=== PATIENT | female | born 1995 | race Hispanic/Latino ===

== ENCOUNTER 2020-10-26 10:09 | Outpatient (CLI) | payer OTHER | END 2020-10-26 10:10 | disposition home or self-care (01) | LOC: BICULT 10:09 | PROVIDERS: ATTEND Nurse Practitioner | DX: Z34.82 Encounter for supervision of other normal pregnancy, second trimester (principal); Z3A.19 19 weeks gestation of pregnancy | CPT/HCPCS: 76805 ==

== ENCOUNTER 2021-03-20 21:12 | Emergency (ER) | payer OTHER ==
[2021-03-20] MEDS ORDERED: Proparacaine 0.5% Opth 15 ML BOT ONE (22:22)
== END 2021-03-20 22:47 | disposition home or self-care (01) ==
LOC: ERS 21:12
DX: H10.9 Unspecified conjunctivitis (principal)
CPT/HCPCS: 99282

== ENCOUNTER 2021-03-27 20:44 | Emergency (ER) | payer OTHER ==
[2021-03-27] MEDS ORDERED: Lidocaine Viscous Sol 2% 15 ml UD Cup ONE (21:17)
[2021-03-27] MEDS ORDERED: Mag-Al 1200 mg/1200 mg/30 ML UDCUP ONE (21:17)
[2021-03-27 21:32] LABS: Bacteria/HPF 2+ HPF (None Seen); Bilirubin Negative (Negative); Blood, Urine 3+ (Negative); Clarity Clear (Clear); Glucose, Urine (Dipstick) Normal (Negative); Ketone, Urine Negative (Negative); Leukocyte 250 Leu/uL (Negative); Nitrite Negative (Negative); Protein, Urine (Dipstick) 20 mg/dL (Neg-Trace); RBC/HPF Greater than 50 HPF (0-3); Specific Gravity, Urine 1.035 (1.002-1.036); Urobilinogen Normal mg/dL (Less than 2); WBC/HPF 21-50 HPF (0-3); pH, Urine 6.5 (5.0-9.0)
[2021-03-27 21:33] LABS: Pregnancy Test - Urine (BHCG) Negative (Negative); Pregu Control Background? CLEAR/WHITE (CLR/WHITE); Pregu Control Bar Appear? YES (CONTROL BAR); Specific Gravity 1.035 (1.002-1.036)
[2021-03-27 22:01] LABS: #Basophils 0.1 thou/uL (0.0-0.2); #Lymphocytes 1.9 thou/uL (1.20-3.40); #Monocytes 0.5 thou/uL (0.11-0.59); #Neutrophils 5.2 thou/uL (1.40-6.50); %Basophils 0.7 % (0.0-1.0); %Eosinophils 0.5 % (0.0-10.0); %Lymphocytes 24.6 % (21.0-51.0); %Monocytes 6.2 % (0.0-10.0); Hemoglobin 12.1 g/dL (12.0-16.0); Mean Corpuscular HGB CONC 34.4 g/dL (32.0-36.0); Mean Corpuscular Hemoglobin 30.9 pg (27.0-31.0); Mean Corpuscular Volume 89.6 fL (78.0-98.0); Mean Platelet Volume 8.5 fL (7.4-10.4); Platelet Count 294 thou/uL (130-400); RBC Distribution Width 11.5 % (11.5-14.5); Red Blood Cell (RBC) Count 3.92 mill/uL (4.20-5.40); White Blood Cell (WBC) Count 7.6 thou/uL (4.8-10.8)
[2021-03-27 22:16] LABS: ALT (SGPT) 23 U/L (8-55); AST (SGOT) 20 U/L (5-34); Albumin 3.9 g/dL (3.5-5.0); Alkaline Phosphatase 97 U/L (40-110); Anion Gap 11 mmol/L (10-20); BUN (Urea Nitrogen) 13 mg/dL (7.0-18.7); Bilirubin, Total 0.3 mg/dL (0.2-1.2); Calc. Creatinine Clearance 0 mL/min (70-130); Calcium 9.1 mg/dL (7.8-10.44); Carbon Dioxide 26 mmol/L (22-29); Chloride 103 mmol/L (98-107); Globulin 2.7 g/dL (2.4-3.5); Glucose 118 mg/dL (70-105); Lipase 44 U/L (8-78); Potassium 3.8 mmol/L (3.5-5.1); Protein, Total 6.6 g/dL (6.0-8.3); Sodium 136 mmol/L (136-145)
== END 2021-03-27 22:37 | disposition home or self-care (01) ==
LOC: ERS 20:44
DX: R10.13 Epigastric pain (principal)
CPT/HCPCS: 36415; 80053; 81003; 81015; 81025; 83690; 85025; 87086; 99284

== ENCOUNTER 2021-04-12 17:19 | Emergency (ER) | payer OTHER ==
[2021-04-12] MEDS ORDERED: Ondansetron PF 4 MG/2 ML Vial ONE ×2 (17:58→19:49)
[2021-04-12] MEDS ORDERED: Ketorolac Tromethamine 30 MG/ML VIAL ONE (17:58)
[2021-04-12 18:02] LABS: #Lymphocytes 2.2 thou/uL (1.20-3.40); #Monocytes 0.6 thou/uL (0.11-0.59); #Neutrophils 5.8 thou/uL (1.40-6.50); %Basophils 0.4 % (0.0-1.0); %Eosinophils 0.5 % (0.0-10.0); %Lymphocytes 25.2 % (21.0-51.0); %Neutrophils 66.8 % (42.0-75.0); Hemoglobin 12.6 g/dL (12.0-16.0); Mean Corpuscular Hemoglobin 29.5 pg (27.0-31.0); Mean Corpuscular Volume 89.3 fL (78.0-98.0); Mean Platelet Volume 8.4 fL (7.4-10.4); Platelet Count 257 thou/uL (130-400); RBC Distribution Width 12.2 % (11.5-14.5); Red Blood Cell (RBC) Count 4.28 mill/uL (4.20-5.40); White Blood Cell (WBC) Count 8.6 thou/uL (4.8-10.8)
[2021-04-12 18:18] LABS: ALT (SGPT) 32 U/L (8-55); AST (SGOT) 24 U/L (5-34); Albumin 4.4 g/dL (3.5-5.0); Alkaline Phosphatase 82 U/L (40-110); Anion Gap 14 mmol/L (10-20); BUN (Urea Nitrogen) 11 mg/dL (7.0-18.7); Bilirubin, Total 0.4 mg/dL (0.2-1.2); Calc. Creatinine Clearance 0 mL/min (70-130); Calcium 9.4 mg/dL (7.8-10.44); Carbon Dioxide 24 mmol/L (22-29); Chloride 104 mmol/L (98-107); Globulin 2.9 g/dL (2.4-3.5); Glucose 101 mg/dL (70-105); Lipase 48 U/L (8-78); Potassium 4.5 mmol/L (3.5-5.1); Protein, Total 7.3 g/dL (6.0-8.3); Sodium 137 mmol/L (136-145)
[2021-04-12 18:20] LABS: BHCG - Serum Negative (NEGATIVE); Pregs Control Background? CLEAR/WHITE (CLR/WHITE); Pregs Control Bar Appear? YES (CONTROL BAR)
[2021-04-12] MEDS ORDERED: Morphine 4 MG/ML VIAL ONE (19:49)
== END 2021-04-12 21:13 | disposition home or self-care (01) ==
LOC: ERS 17:19
DX: K80.20 Calculus of gallbladder without cholecystitis without obstruction (principal)
CPT/HCPCS: 36415; 76705; 80053; 83690; 84703; 85025; J1885; J2270; J2405

== ENCOUNTER 2021-04-13 08:29 | Inpatient (IN) | payer OTHER ==
[2021-04-13 09:14] LABS: #Lymphocytes 1.4 thou/uL (1.20-3.40); #Monocytes 0.5 thou/uL (0.11-0.59); #Neutrophils 7.3 thou/uL (1.40-6.50); %Basophils 0.3 % (0.0-1.0); %Eosinophils 0.2 % (0.0-10.0); %Lymphocytes 14.9 % (21.0-51.0); %Neutrophils 79.7 % (42.0-75.0); Hemoglobin 13.7 g/dL (12.0-16.0); Mean Corpuscular HGB CONC 33.1 g/dL (32.0-36.0); Mean Corpuscular Hemoglobin 29.7 pg (27.0-31.0); Mean Corpuscular Volume 89.6 fL (78.0-98.0); Mean Platelet Volume 8.1 fL (7.4-10.4); Platelet Count 258 thou/uL (130-400); RBC Distribution Width 12.3 % (11.5-14.5); Red Blood Cell (RBC) Count 4.61 mill/uL (4.20-5.40); White Blood Cell (WBC) Count 9.1 thou/uL (4.8-10.8)
[2021-04-13] MEDS ORDERED: Ondansetron PF 4 MG/2 ML Vial ONE (09:19)
[2021-04-13] MEDS ORDERED: Morphine 4 MG/ML VIAL ONE ×2 (09:19→10:50)
[2021-04-13 09:24] LABS: Bilirubin 1+ (Negative); Blood, Urine Negative (Negative); Clarity Turbid (Clear); Glucose, Urine (Dipstick) Normal (Negative); Ketone, Urine Negative (Negative); Leukocyte 500 Leu/uL (Negative); Nitrite Negative (Negative); Protein, Urine (Dipstick) 10 mg/dL (Neg-Trace); RBC/HPF 0-3 HPF (0-3); Specific Gravity, Urine 1.021 (1.002-1.036); Squamous Epithelial 21-50 HPF (0-3); Urobilinogen 3 mg/dL (Less than 2); pH, Urine 7.5 (5.0-9.0)
[2021-04-13 09:25] LABS: Bacteria/HPF 1+ HPF (None Seen)
[2021-04-13 09:26] LABS: Pregnancy Test - Urine (BHCG) Negative (Negative); Pregu Control Background? CLEAR/WHITE (CLR/WHITE); Pregu Control Bar Appear? YES (CONTROL BAR); Specific Gravity 1.021 (1.002-1.036)
[2021-04-13] MEDS ORDERED: Iopamidol-370 76% 500 ML 1 ML ONE (10:02)
[2021-04-13 11:30] LABS: Albumin 3.9 g/dL (3.5-5.0)
[2021-04-13 11:31] LABS: Chloride 103 mmol/L (98-107); Potassium 4.1 mmol/L (3.5-5.1); Sodium 132 mmol/L (136-145)
[2021-04-13 11:32] LABS: Calcium 8.7 mg/dL (7.8-10.44); Globulin 2.9 g/dL (2.4-3.5); Glucose 109 mg/dL (70-105); Protein, Total 6.8 g/dL (6.0-8.3)
[2021-04-13 11:34] LABS: Anion Gap 10 mmol/L (10-20); Carbon Dioxide 23 mmol/L (22-29)
[2021-04-13 11:35] LABS: Alkaline Phosphatase 110 U/L (40-110)
[2021-04-13 11:36] LABS: BUN (Urea Nitrogen) 8 mg/dL (7.0-18.7); Calc. Creatinine Clearance 0 mL/min (70-130)
[2021-04-13 11:37] LABS: AST (SGOT) 333 U/L (5-34)
[2021-04-13 11:38] LABS: ALT (SGPT) 227 U/L (8-55); Lipase 45 U/L (8-78)
[2021-04-13 11:39] LABS: Bilirubin, Total 1.8 mg/dL (0.2-1.2)
[2021-04-13] MEDS ORDERED: Senokot S 8.6-50 MG TAB PO PRN (11:39)
[2021-04-13] MEDS ORDERED: Acetaminophen 650 MG Suppository PR PRN (12:28)
[2021-04-13] MEDS ORDERED: Piperacillin/Tazobactam 3.375 GM in Sodium Chloride 0.9% 100 ML IVPB SCH ×2 (14:00→22:00)
[2021-04-13 14:25] VITALS: BMI 35.5
[2021-04-13] MEDS ORDERED: FLU VACC QS2021-22(6MOS UP)/PF 60 MCG/0.5 ML SYRINGE IM ONE (14:45)
[2021-04-13] MEDS: Sodium Chloride 0.9% 1,000 ML IV SCH (15:25)
[2021-04-13 18:01] LABS: SARS-CoV-2 NAA Rapid Test Not Detected (NotDetected)
[2021-04-13 18:01] LABS: PTT 34.3 sec (22.9-36.1); Prothrombin Time 12.8 sec (12.0-14.7)
[2021-04-13] MEDS: Morphine 4 MG/ML VIAL SLOW IVP PRN (18:33)
[2021-04-13] MEDS: Piperacillin/Tazobactam 3.375 GM in Sodium Chloride 0.9% 100 ML IVPB SCH (23:56)
[2021-04-14] MEDS: Morphine 4 MG/ML VIAL SLOW IVP PRN ×3 (03:28→19:58)
[2021-04-14] MEDS: Ondansetron PF 4 MG/2 ML Vial IVP PRN ×2 (03:32→14:40)
[2021-04-14 03:53] LABS: #Eosinphils 0.1 thou/uL (0.0-0.7); #Lymphocytes 1.5 thou/uL (1.20-3.40); #Monocytes 0.4 thou/uL (0.11-0.59); #Neutrophils 4.5 thou/uL (1.40-6.50); %Basophils 0.4 % (0.0-1.0); %Eosinophils 1.2 % (0.0-10.0); %Lymphocytes 22.8 % (21.0-51.0); %Monocytes 6.5 % (0.0-10.0); %Neutrophils 69.1 % (42.0-75.0); Hemoglobin 13.3 g/dL (12.0-16.0); Mean Corpuscular HGB CONC 33.2 g/dL (32.0-36.0); Mean Corpuscular Volume 90.3 fL (78.0-98.0); Mean Platelet Volume 8.2 fL (7.4-10.4); Platelet Count 234 thou/uL (130-400); RBC Distribution Width 12.2 % (11.5-14.5); Red Blood Cell (RBC) Count 4.43 mill/uL (4.20-5.40); White Blood Cell (WBC) Count 6.6 thou/uL (4.8-10.8)
[2021-04-14 04:13] LABS: Anion Gap 11 mmol/L (10-20); BUN (Urea Nitrogen) 7 mg/dL (7.0-18.7); Calc. Creatinine Clearance 164 mL/min (70-130); Calcium 8.5 mg/dL (7.8-10.44); Carbon Dioxide 22 mmol/L (22-29); Chloride 107 mmol/L (98-107); Glucose 81 mg/dL (70-105); Potassium 3.6 mmol/L (3.5-5.1); Sodium 136 mmol/L (136-145)
[2021-04-14 04:14] LABS: ALT (SGPT) 274 U/L (8-55); AST (SGOT) 185 U/L (5-34); Albumin 3.8 g/dL (3.5-5.0); Alkaline Phosphatase 146 U/L (40-110); Bilirubin, Direct 0.9 mg/dL (0.1-0.3); Bilirubin, Total 1.8 mg/dL (0.2-1.2); Protein, Total 6.5 g/dL (6.0-8.3)
[2021-04-14] MEDS: Sodium Chloride 0.9% 1,000 ML IV SCH ×3 (06:31→15:31)
[2021-04-14] MEDS: Piperacillin/Tazobactam 3.375 GM in Sodium Chloride 0.9% 100 ML IVPB SCH ×2 (07:58→15:32)
[2021-04-14] MEDS ORDERED: Lidocaine 1% w/Epinephrine 1:100K 20 ML VIAL ONE (09:36)
[2021-04-14] MEDS ORDERED: Iothalamate Meglumine 60% 50 ML VIAL FS ONE ×2 (09:36→10:30)
[2021-04-14] MEDS ORDERED: Bupivacaine 0.25% HCL 30 ML VIAL ONE (09:36)
[2021-04-14] MEDS ORDERED: Fentanyl 100 MCG/2 ML VIAL ONE ×3 (09:37→12:28)
[2021-04-14] MEDS ORDERED: Dexmedetomidine 200 MCG/2 ML VIAL ONE (09:37)
[2021-04-14] MEDS ORDERED: PROPOFOL 200 MG/20 ML VIAL ONE (09:51)
[2021-04-14] MEDS ORDERED: Rocuronium Bromide 10 MG/ML (10ML VIAL) ONE (09:51)
[2021-04-14] MEDS ORDERED: Ondansetron PF 4 MG/2 ML Vial ONE (09:51)
[2021-04-14] MEDS ORDERED: EPHEDRINE 25 MG/5 ML SYRINGE ONE (09:51)
[2021-04-14] MEDS ORDERED: Lidocaine 1% PF 5 ML VIAL ONE (09:51)
[2021-04-14] MEDS ORDERED: Ketorolac Tromethamine 30 MG/ML VIAL ONE (09:51)
[2021-04-14] MEDS ORDERED: Dexamethasone 20 MG/5 ML VIAL ONE (09:51)
[2021-04-14] MEDS ORDERED: Indomethacin 50 MG SUPP ONE (10:29)
[2021-04-14] MEDS ORDERED: HYDROmorphone 2 MG/ML VIAL SLOW IVP PRN ×2 (12:00)
[2021-04-14] MEDS ORDERED: PACU-Morphine 4MG/ML VIAL SLOW IVP PRN ×2 (12:00)
[2021-04-14] MEDS ORDERED: Ondansetron HCl/PF 4 MG/2 ML Vial IVP PRN ×2 (12:00)
[2021-04-14] MEDS ORDERED: Promethazine HCl 25 MG/ML VIAL IM PRN ×2 (12:00)
[2021-04-14] MEDS ORDERED: Promethazine HCl 25 MG/ML VIAL IVPB PRN ×2 (12:00)
[2021-04-14] MEDS ORDERED: Promethazine HCl 25 MG/ML VIAL SLOW IVP PRN (12:28)
[2021-04-14] MEDS: Pantoprazole 40 MG VIAL IVP SCH (13:19)
[2021-04-14] MEDS ORDERED: Promethazine HCl 12.5 MG in Sodium Chloride 0.9% 50 ML IVPB SCH (18:00)
[2021-04-15] MEDS: Piperacillin/Tazobactam 3.375 GM in Sodium Chloride 0.9% 100 ML IVPB SCH ×4 (00:45→23:49)
[2021-04-15] MEDS: Sodium Chloride 0.9% 1,000 ML IV SCH ×6 (00:46→23:50)
[2021-04-15] MEDS: Morphine 4 MG/ML VIAL SLOW IVP PRN ×3 (01:35→13:35)
[2021-04-15] MEDS: Acetaminophen 325 MG TAB PO PRN (03:11)
[2021-04-15] MEDS: Ondansetron PF 4 MG/2 ML Vial IVP PRN ×3 (04:32→22:46)
[2021-04-15 05:02] LABS: #Lymphocytes 1.5 thou/uL (1.20-3.40); #Monocytes 0.6 thou/uL (0.11-0.59); #Neutrophils 8.4 thou/uL (1.40-6.50); %Basophils 0.1 % (0.0-1.0); %Eosinophils 0.1 % (0.0-10.0); %Lymphocytes 13.9 % (21.0-51.0); %Monocytes 5.8 % (0.0-10.0); %Neutrophils 80.1 % (42.0-75.0); Hemoglobin 13.1 g/dL (12.0-16.0); Mean Corpuscular HGB CONC 33.4 g/dL (32.0-36.0); Mean Corpuscular Hemoglobin 29.9 pg (27.0-31.0); Mean Corpuscular Volume 89.6 fL (78.0-98.0); Platelet Count 267 thou/uL (130-400); Red Blood Cell (RBC) Count 4.38 mill/uL (4.20-5.40); White Blood Cell (WBC) Count 10.5 thou/uL (4.8-10.8)
[2021-04-15 05:26] LABS: Anion Gap 12 mmol/L (10-20); BUN (Urea Nitrogen) 8 mg/dL (7.0-18.7); Calc. Creatinine Clearance 166 mL/min (70-130); Calcium 8.7 mg/dL (7.8-10.44); Carbon Dioxide 22 mmol/L (22-29); Chloride 106 mmol/L (98-107); Glucose 105 mg/dL (70-105); Potassium 3.7 mmol/L (3.5-5.1); Sodium 136 mmol/L (136-145)
[2021-04-15 05:27] LABS: ALT (SGPT) 190 U/L (8-55); AST (SGOT) 69 U/L (5-34); Albumin 3.7 g/dL (3.5-5.0); Alkaline Phosphatase 142 U/L (40-110); Bilirubin, Direct 0.7 mg/dL (0.1-0.3); Bilirubin, Total 1.3 mg/dL (0.2-1.2); Protein, Total 6.5 g/dL (6.0-8.3)
[2021-04-15] MEDS ORDERED: traMADol HCl 50 MG TAB PO PRN (09:08)
[2021-04-15] MEDS ORDERED: Ketorolac Tromethamine 30 MG/ML VIAL IVP SCH ×2 (09:08→10:00)
[2021-04-15] MEDS: Ondansetron ODT 4 MG TAB PO PRN (09:41)
[2021-04-15] MEDS: Scopolamine 1.5 mg/72 hour Patch TD SCH (11:17)
[2021-04-15] MEDS ORDERED: Enoxaparin Sodium 40 MG/0.4 ML SYRINGE SC SCH (11:45)
[2021-04-15] MEDS ORDERED: Ketorolac Tromethamine 10 MG TAB PO SCH (12:00)
[2021-04-15] MEDS: Pantoprazole 40 MG VIAL IVP SCH (13:15)
[2021-04-15] MEDS ORDERED: Promethazine HCl 12.5 MG in Sodium Chloride 0.9% 50 ML IVPB PRN (13:59)
[2021-04-15] MEDS ORDERED: HYDROmorphone 0.5 MG/0.5 ML SYRINGE SLOW IVP SCH (14:00)
[2021-04-15] MEDS ORDERED: Naloxone HCl 0.4 mg/ml Vial IV PRN (15:23)
[2021-04-15] MEDS ORDERED: Promethazine HCl 25 MG/ML VIAL IM PRN (15:23)
[2021-04-15] MEDS ORDERED: HYDROmorphone 10 mg/100 ml CADD IVPB PRN (15:23)
[2021-04-15] MEDS ORDERED: diphenhydrAMINE 25 MG CAP PO PRN (15:23)
[2021-04-15] MEDS ORDERED: diphenhydrAMINE 50 MG/ML VIAL IM PRN (15:23)
[2021-04-15] MEDS ORDERED: diphenhydrAMINE 50 MG/ML VIAL IVP PRN (15:23)
[2021-04-15] MEDS ORDERED: Communication Order-Pharmacy FS PRN (15:30)
[2021-04-15 19:03] LABS: Bacteria/HPF None Seen HPF (None Seen); Bilirubin Negative (Negative); Blood, Urine Negative (Negative); Clarity Turbid (Clear); Glucose, Urine (Dipstick) Normal (Negative); Ketone, Urine 20 mg/dL (Negative); Leukocyte 75 Leu/uL (Negative); Nitrite Negative (Negative); Protein, Urine (Dipstick) 10 mg/dL (Neg-Trace); RBC/HPF 0-3 HPF (0-3); Specific Gravity, Urine 1.021 (1.002-1.036); Urine Culture Reflex No No; Urobilinogen Normal mg/dL (Less than 2)
[2021-04-15] MEDS: Ketorolac Tromethamine 30 MG/ML VIAL IVP PRN (22:42)
[2021-04-16] MEDS: Acetaminophen 325 MG TAB PO PRN (02:40)
[2021-04-16 05:11] LABS: #Monocytes 0.7 thou/uL (0.11-0.59); #Neutrophils 9.8 thou/uL (1.40-6.50); %Basophils 0.1 % (0.0-1.0); %Eosinophils 0.1 % (0.0-10.0); %Lymphocytes 8.6 % (21.0-51.0); %Neutrophils 85.3 % (42.0-75.0); Mean Corpuscular HGB CONC 33.3 g/dL (32.0-36.0); Mean Corpuscular Hemoglobin 30.2 pg (27.0-31.0); Mean Corpuscular Volume 90.5 fL (78.0-98.0); Mean Platelet Volume 7.8 fL (7.4-10.4); Platelet Count 236 thou/uL (130-400); RBC Distribution Width 12.6 % (11.5-14.5); Red Blood Cell (RBC) Count 3.98 mill/uL (4.20-5.40); White Blood Cell (WBC) Count 11.5 thou/uL (4.8-10.8)
[2021-04-16 05:38] LABS: ALT (SGPT) 113 U/L (8-55); AST (SGOT) 30 U/L (5-34); Albumin 3.2 g/dL (3.5-5.0); Alkaline Phosphatase 116 U/L (40-110); Anion Gap 10 mmol/L (10-20); BUN (Urea Nitrogen) 9 mg/dL (7.0-18.7); Bilirubin, Direct 0.4 mg/dL (0.1-0.3); Bilirubin, Total 0.9 mg/dL (0.2-1.2); Calc. Creatinine Clearance 191 mL/min (70-130); Calcium 7.7 mg/dL (7.8-10.44); Carbon Dioxide 20 mmol/L (22-29); Chloride 108 mmol/L (98-107); Glucose 84 mg/dL (70-105); Magnesium 1.5 mg/dL (1.6-2.6); Potassium 3.1 mmol/L (3.5-5.1); Protein, Total 5.6 g/dL (6.0-8.3); Sodium 135 mmol/L (136-145)
[2021-04-16 05:39] LABS: Phosphorus 2.9 mg/dL (2.3-4.7)
[2021-04-16 05:51] LABS: Lipase 1699 U/L (8-78)
[2021-04-16] MEDS: Ketorolac Tromethamine 30 MG/ML VIAL IVP PRN ×2 (06:17→23:23)
[2021-04-16] MEDS ORDERED: Potassium Chloride 20 MEQ TAB PO SCH (07:30)
[2021-04-16] MEDS ORDERED: Magnesium 2 GM/50 ML 2 GM in Premix Bag 1 BAG IVPB SCH (07:45)
[2021-04-16] MEDS: Polyethylene Glycol 3350 17 GM Packet PO SCH (09:48)
[2021-04-16] MEDS: Pantoprazole 40 MG VIAL IVP SCH (09:49)
[2021-04-16] MEDS: Enoxaparin Sodium 40 MG/0.4 ML SYRINGE SC SCH (09:49)
[2021-04-16] MEDS: Ondansetron ODT 4 MG TAB PO PRN (10:13)
[2021-04-16] MEDS: Sodium Chloride 0.9% 1,000 ML IV SCH ×3 (10:20→23:38)
[2021-04-16] MEDS: Piperacillin/Tazobactam 3.375 GM in Sodium Chloride 0.9% 100 ML IVPB SCH ×3 (10:21→23:36)
[2021-04-16] MEDS: Potassium Chloride 20 MEQ in Premix Bag 1 BAG IVPB SCH ×2 (11:29→13:41)
[2021-04-16] MEDS ORDERED: traMADol HCl 50 MG TAB PO PRN ×2 (12:10)
[2021-04-16] MEDS ORDERED: Zolpidem Tartrate 5 MG TAB PO PRN (12:16)
[2021-04-16] MEDS ORDERED: HYDROmorphone 10 mg/100 ml CADD IVPB PRN ×2 (12:16→21:30)
[2021-04-16] MEDS ORDERED: diphenhydrAMINE 25 MG CAP PO PRN ×2 (12:16→21:30)
[2021-04-16] MEDS ORDERED: Promethazine HCl 25 MG/ML VIAL IM PRN ×2 (12:16→21:30)
[2021-04-16] MEDS ORDERED: Naloxone HCl 0.4 mg/ml Vial IV PRN ×2 (12:16→21:30)
[2021-04-16] MEDS ORDERED: diphenhydrAMINE 50 MG/ML VIAL IVP PRN ×2 (12:16→21:30)
[2021-04-16] MEDS ORDERED: diphenhydrAMINE 50 MG/ML VIAL IM PRN ×2 (12:16→21:30)
[2021-04-16] MEDS ORDERED: Ketorolac Tromethamine 30 MG/ML VIAL IVP PRN (12:16)
[2021-04-16] MEDS ORDERED: Ondansetron PF 4 MG/2 ML Vial IVP PRN (12:16)
[2021-04-16] MEDS ORDERED: Communication Order-Pharmacy FS SCH ×2 (12:30→21:30)
[2021-04-16] MEDS: Ondansetron PF 4 MG/2 ML Vial IVP PRN (23:08)
[2021-04-17] MEDS: Sodium Chloride 0.9% 1,000 ML IV SCH ×3 (07:30→19:25)
[2021-04-17 08:00] LABS: #Monocytes 0.8 thou/uL (0.11-0.59); #Neutrophils 10.2 thou/uL (1.40-6.50); %Basophils 0.2 % (0.0-1.0); %Eosinophils 0.4 % (0.0-10.0); %Lymphocytes 8.3 % (21.0-51.0); %Monocytes 6.3 % (0.0-10.0); %Neutrophils 84.7 % (42.0-75.0); Hemoglobin 11.6 g/dL (12.0-16.0); Mean Corpuscular HGB CONC 32.6 g/dL (32.0-36.0); Mean Corpuscular Hemoglobin 29.7 pg (27.0-31.0); Mean Corpuscular Volume 91.1 fL (78.0-98.0); Mean Platelet Volume 8.1 fL (7.4-10.4); Platelet Count 206 thou/uL (130-400); RBC Distribution Width 12.5 % (11.5-14.5); Red Blood Cell (RBC) Count 3.89 mill/uL (4.20-5.40)
[2021-04-17 08:28] LABS: ALT (SGPT) 67 U/L (8-55); AST (SGOT) 16 U/L (5-34); Alkaline Phosphatase 96 U/L (40-110); Anion Gap 10 mmol/L (10-20); BUN (Urea Nitrogen) 8 mg/dL (7.0-18.7); Bilirubin, Direct 0.4 mg/dL (0.1-0.3); Bilirubin, Total 0.8 mg/dL (0.2-1.2); Calc. Creatinine Clearance 191 mL/min (70-130); Carbon Dioxide 19 mmol/L (22-29); Chloride 111 mmol/L (98-107); Glucose 72 mg/dL (70-105); Lipase 213 U/L (8-78); Magnesium 1.8 mg/dL (1.6-2.6); Phosphorus 1.7 mg/dL (2.3-4.7); Protein, Total 5.7 g/dL (6.0-8.3); Sodium 136 mmol/L (136-145)
[2021-04-17] MEDS: Piperacillin/Tazobactam 3.375 GM in Sodium Chloride 0.9% 100 ML IVPB SCH ×2 (10:07→16:24)
[2021-04-17] MEDS: Enoxaparin Sodium 40 MG/0.4 ML SYRINGE SC SCH (10:08)
[2021-04-17] MEDS: Pantoprazole 40 MG VIAL IVP SCH (10:08)
[2021-04-17] MEDS: Polyethylene Glycol 3350 17 GM Packet PO SCH (10:09)
[2021-04-17] MEDS: Ondansetron PF 4 MG/2 ML Vial IVP PRN ×2 (10:19→17:25)
[2021-04-17] MEDS ORDERED: Iopamidol 370 76% 50 ML VIAL FS ONE (10:34)
[2021-04-17] MEDS ORDERED: Iopamidol-370 76% 500 ML 1 ML ONE (10:34)
[2021-04-17] MEDS: traMADol HCl 50 MG TAB PO PRN ×2 (16:25→22:09)
[2021-04-17] MEDS: Ibuprofen 800 MG TAB PO PRN (17:18)
[2021-04-17] MEDS: Acetaminophen 325 MG TAB PO PRN (19:25)
[2021-04-17] MEDS: Zolpidem Tartrate 5 MG TAB PO PRN (22:09)
[2021-04-18] MEDS ORDERED: Sodium Chloride 0.9% 1,000 ML IV SCH (00:11)
[2021-04-18] MEDS ORDERED: Senokot 8.6 MG TAB PO PRN (00:12)
[2021-04-18] MEDS: Piperacillin/Tazobactam 3.375 GM in Sodium Chloride 0.9% 100 ML IVPB SCH ×4 (00:15→23:51)
[2021-04-18] MEDS: Ibuprofen 800 MG TAB PO PRN (01:03)
[2021-04-18] MEDS: Sodium Chloride 0.9% 1,000 ML IV SCH ×2 (01:05→05:07)
[2021-04-18] MEDS: traMADol HCl 50 MG TAB PO PRN ×4 (04:35→21:31)
[2021-04-18] MEDS: Enoxaparin Sodium 40 MG/0.4 ML SYRINGE SC SCH (08:53)
[2021-04-18] MEDS: Polyethylene Glycol 3350 17 GM Packet PO SCH ×2 (08:57→20:45)
[2021-04-18] MEDS: Scopolamine 1.5 mg/72 hour Patch TD SCH (09:01)
[2021-04-18] MEDS: Pantoprazole 40 MG VIAL IVP SCH (10:09)
[2021-04-18] MEDS: Ondansetron ODT 4 MG TAB PO PRN (12:41)
[2021-04-18 13:04] LABS: #Eosinphils 0.1 thou/uL (0.0-0.7); #Lymphocytes 1.4 thou/uL (1.20-3.40); #Monocytes 0.7 thou/uL (0.11-0.59); #Neutrophils 8.1 thou/uL (1.40-6.50); %Basophils 0.3 % (0.0-1.0); %Eosinophils 1.3 % (0.0-10.0); %Lymphocytes 13.7 % (21.0-51.0); %Monocytes 6.9 % (0.0-10.0); %Neutrophils 77.8 % (42.0-75.0); Hemoglobin 10.1 g/dL (12.0-16.0); Mean Corpuscular HGB CONC 33.3 g/dL (32.0-36.0); Mean Corpuscular Hemoglobin 30.3 pg (27.0-31.0); Mean Platelet Volume 8.1 fL (7.4-10.4); Platelet Count 231 thou/uL (130-400); RBC Distribution Width 12.4 % (11.5-14.5); Red Blood Cell (RBC) Count 3.32 mill/uL (4.20-5.40); White Blood Cell (WBC) Count 10.5 thou/uL (4.8-10.8)
[2021-04-18 13:24] LABS: Magnesium 1.8 mg/dL (1.6-2.6)
[2021-04-18 13:30] LABS: Phosphorus 1.4 mg/dL (2.3-4.7)
[2021-04-18] MEDS ORDERED: Potassium Phosphate 30 MMOL in Sodium Chloride 0.9% 500 ML IVPB SCH (13:45)
[2021-04-18] MEDS: Acetaminophen 325 MG TAB PO PRN ×2 (16:57→20:45)
[2021-04-18] MEDS: Zolpidem Tartrate 5 MG TAB PO PRN (22:42)
[2021-04-19] MEDS: traMADol HCl 50 MG TAB PO PRN (03:38)
[2021-04-19] MEDS: Piperacillin/Tazobactam 3.375 GM in Sodium Chloride 0.9% 100 ML IVPB SCH (08:36)
[2021-04-19] MEDS: Enoxaparin Sodium 40 MG/0.4 ML SYRINGE SC SCH (08:37)
[2021-04-19] MEDS: Polyethylene Glycol 3350 17 GM Packet PO SCH (08:37)
[2021-04-19] MEDS: Pantoprazole 40 MG VIAL IVP SCH (08:51)
[2021-04-19 08:58] VITALS: TEMP 97.8
[2021-04-19 11:48] VITALS: BP 148/88
[2021-04-19 11:58] LABS: Lactic Acid 2.1 mmol/L (0.5-2.2)
== END 2021-04-19 11:40 | disposition home or self-care (01) | DRG 417 ==
LOC: ERS 08:29 → ONC 12:27
PROVIDERS: ADMIT Internal Medicine; ATTEND Internal Medicine
PROC: 0FT44ZZ Resection of Gallbladder, Percutaneous Endoscopic Approach (ICD-10-PCS; principal; 2021-04-14)
PROC: BF101ZZ Fluoroscopy of Bile Ducts using Low Osmolar Contrast (ICD-10-PCS; 2021-04-14)
PROC: 0F798ZZ Dilation of Common Bile Duct, Via Natural or Artificial Opening Endoscopic (ICD-10-PCS; 2021-04-14)
DX: K80.42 Calculus of bile duct with acute cholecystitis without obstruction (principal); K85.10 Biliary acute pancreatitis without necrosis or infection; E87.1 Hypo-osmolality and hyponatremia; N39.0 Urinary tract infection, site not specified; Z20.822 Contact with and (suspected) exposure to COVID-19; I10 Essential (primary) hypertension; K21.00 Gastro-esophageal reflux disease with esophagitis, without bleeding; E66.9 Obesity, unspecified; Z79.899 Other long term (current) drug therapy; Z68.35 Body mass index [BMI] 35.0-35.9, adult
CPT/HCPCS: 36415; 47532; 71045; 74177; 74330; 76000; 76705; 80048; 80053; 80076; 81001; 81003; 81015; 81025; 83605; 83690; 83735; 84100; 84145; 84703; 85025; 85610; 85730; 86850; 86870; 86900; 86901; 86922; 87040; 88304; 96374; 96375; 96376; C9113; J1100; J1170; J1650; J1885; J2270; J2405; J2543; J2550; J2704; J3010; J3475; J3480; J3490; J7030; J7050; Q0162; Q9961-U8; Q9967; S0020; U0002